=== PATIENT | male | born 1960 | race Two or more races ===

== ENCOUNTER 2025-02-13 07:46 | Emergency (ER) | payer OTHER ==
[~2025-02-13] VITALS: Ht 175.3 cm; Wt 77.8 kg
[2025-02-13 08:32] LABS: BASOPHILS % 0.6 % (0.0-2.0); EOSINOPHILS % 2.2 % (0.0-5.0); HEMATOCRIT. 41.2 % (42.0-52.0); HEMOGLOBIN. 14.1 g/dL (14.0-18.0); LYMPHOCYTES % 37.7 % (20.0-50.0); MEAN PLATELET VOLUME 7.4 fl (7.4-10.4); MONOCYTES % 9.9 % (2.0-8.0); NEUTROPHILS % 49.6 % (40.0-76.0); PLATELET 230 x1000/uL (130-400); RED BLOOD CELL COUNT 4.41 mill/uL (4.7-6.1); RED CELL DISTRIBUTION WIDTH 13.2 % (11.6-14.6)
[2025-02-13 08:43] LABS: INR 1.0
[2025-02-13 08:45] LABS: CREATININE 0.9 mg/dL (0.6-1.3); UREA NITROGEN BLOOD 12 mg/dL (9-23)
[2025-02-13 08:46] LABS: ETHANOL BLOOD < 10 mg/dL (<10)
[2025-02-13] MEDS ORDERED: IOHEXOL-350 100 ML BOTTLE ONE (09:10)
[2025-02-13 09:34] LABS: CLARITY URINE CLEAR (CLEAR); COLOR URINE YELLOW (YELLOW); GLUCOSE URINE NEGATIVE (NEGATIVE); KETONES URINE NEGATIVE (NEGATIVE); LEUKOCYTE ESTERASE URINE NEGATIVE (NEGATIVE); NITRITE URINE NEGATIVE (NEGATIVE); OCCULT BLOOD URINE 2+ (NEGATIVE); PH URINE 6.0 (4.5-8.0); PROTEIN URINE NEGATIVE (NEGATIVE); SPECIFIC GRAVITY URINE 1.024 (1.005-1.030); UROBILINOGEN URINE 0.2 E.U./dL (0.2-1.0)
[2025-02-13 09:52] LABS: SQUAMOUS EPITHELIAL CELL URINE RARE /lpf (RARE/1+)
[2025-02-13 09:53] LABS: BACTERIA URINE TRACE; RBC URINE 0-2 /hpf (0-2)
[2025-02-13 09:55] LABS: WBC URINE NONE SEEN /hpf (0-2)
[2025-02-13 10:00] LABS: *AMPHETAMINES SCREEN URINE NEGATIVE (NEGATIVE); *BARBITURATES SCREEN URINE NEGATIVE (NEGATIVE); *BENZODIAZEPINES SCREEN URINE NEGATIVE (NEGATIVE); *COCAINE SCREEN URINE NEGATIVE (NEGATIVE); CANNABINOID URINE SCREEN NEGATIVE (NEGATIVE); ECSTASY MDMA SCREEN URINE NEGATIVE (NEGATIVE); METHADONE URINE SCREEN NEGATIVE (NEGATIVE); OPIATES URINE SCREEN NEGATIVE (NEGATIVE); PHENCYCLIDINE URINE SCREEN NEGATIVE (NEGATIVE)
[2025-02-13 10:25] VITALS: BP 133/79; PULSE 69; RESP 17; TEMP 36.9; O2SAT 98
== END 2025-02-13 10:45 | disposition left against medical advice (07) ==
LOC: ER 07:46 → EDBD 07:46 → 7WST 09:35 → UNDOADMIN 09:35 → EDBEDREQTM 09:54 → EDBEDREQ 09:54 → ENRESERV 10:02
DX: R47.1 Dysarthria and anarthria (principal); R27.0 Ataxia, unspecified; Z86.73 Personal history of transient ischemic attack (TIA), and cerebral infarction without residual deficits
CPT/HCPCS: 80305; 80048; 81003; 80320; 82962; 85025; 85610; 85730; 36415; 71045; 70496; 70498; 70450; 93005; 99291; Q9967; A4606; G0480